=== PATIENT | female | born 2000 | race Caucasian/White ===

== ENCOUNTER 2019-12-20 08:05 | Emergency (ER) | payer SELFPAY ==
[~2019-12-20] VITALS: Ht 160 cm; Wt 109.0 kg
[2019-12-20 08:19] VITALS: BP 160/85
--- NOTE | 2019-12-20 08:25 | PHYS DOC ---
General Adult EDM: Chief Complaint: FOOT INJURY PAIN HPI: HPI: Patient is a 19 year old female who presented to ER today for evaluation of left ankle pain after she stepped into a hole last night while leaving work. Patient says she heard a loud pop in her left ankle, has been having pain since. The pain is worse whenever she walks. Patient denies any pain in her foot or her left knee. Review of Systems: Review of Systems: Constitutional: Denies fever or chills. [] Eyes: Denies change in visual acuity. [] HENT: Denies nasal congestion or sore throat. [] Respiratory: Denies cough or shortness of breath. [] Cardiovascular: Denies chest pain or edema. [] GI: Denies abdominal pain, nausea, vomiting, bloody stools or diarrhea. [] : Denies dysuria. [] Musculoskeletal: Positive for left ankle pain. Integument: Denies rash. [] Neurologic: Denies headache, focal weakness or sensory changes. [] Endocrine: Denies polyuria or polydipsia. [] Lymphatic: Denies swollen glands. [] Psychiatric: Denies depression or anxiety. [] Heart Score: Risk Factors: Risk Factors: DM, Current or recent (<one month) smoker, HTN, HLP, family history of CAD, obesity. Risk Scores: Score 0 - 3: 2.5% MACE over next 6 weeks - Discharge Home Score 4 - 6: 20.3% MACE over next 6 weeks - Admit for Clinical Observation Score 7 - 10: 72.7% MACE over next 6 weeks - Early Invasive Strategies Allergies: Allergies: Allergies Coded Allergies Type Severity Reaction Last Updated Verified acetaminophen Adverse Reaction Unknown Rash 12/20/19 Yes hydrocodone Adverse Reaction Unknown Rash 12/20/19 Yes Physical Exam: PE: Constitutional: Well developed, well nourished, no acute distress, non-toxic appearance. [] HENT: Normocephalic, atraumatic, bilateral external ears normal, oropharynx moist, no oral exudates, nose normal. [] Eyes: PERRLA, EOMI, conjunctiva normal, no discharge. [] Neck: Normal range of motion, no tenderness, supple, no stridor. [] Cardiovascular:Heart rate regular rhythm, no murmur [] Lungs & Thorax: Bilateral breath sounds clear to auscultation [] Abdomen: Bowel sounds normal, soft, no tenderness, no masses, no pulsatile masses. [] Skin: Warm, dry, no erythema, no rash. [] Back: No tenderness, no CVA tenderness. [] Extremities: Left ankle is swollen and tender to palpation at the left lateral malleolus area, no deformity noted, ankle is stable. There is no tenderness to palpation on the left foot, no tenderness to palpation over the proximal tibia or fibular area, no knee tenderness to palpation. Neurologic: Alert and oriented X 3, normal motor function, normal sensory function, no focal deficits noted. [] Psychologic: Affect normal, judgement normal, mood normal. [] EKG: EKG: [] Radiology/Procedures: Radiology/Procedures: [][facility] [address] [place] [address] IMAGING REPORT Signed PATIENT: ANNE FRANKLIN ACCOUNT: [id number] : 2000 LOCATION: ER AGE: 19 SEX: F EXAM STATUS: REG ER ORD. PHYSICIAN: SYDNIE GANT DO REASON: left ankle injured, stepped into a hole, PAIN ON LATERAL SIDE,LROM PROCEDURE: ANKLE LEFT 3V Examination: ANKLE LEFT 3V History: Reason: left ankle injured, stepped into a hole, PAIN ON LATERAL SIDE,LROM Comparison/Correlation: None Findings: Total 3 images left ankle were obtained with portable technique. Ankle joint mortise is unremarkable. Soft tissue swelling about the malleoli noted. No displaced fracture or bone destruction. No degenerative changes seen. Impression: Mild soft tissue swelling. Electronically signed by: Barry Aguila MD (12/20/2019 8:34 AM) [id number] DICTATED and SIGNED BY: BARRY AGUILA MD DATE: 12/20/19 0834 Course & Med Decision Making: Course & Med Decision Making Pertinent Labs and Imaging studies reviewed. (See chart for details) [] Dragon Disclaimer: Dragon Disclaimer: This electronic medical record was generated, in whole or in part, using a voice recognition dictation system. Departure Departure Impression: Primary Impression: Left ankle sprain Disposition: 01 HOME, SELF-CARE Condition: STABLE Referrals: NO PCP (PCP) please follow up with your doctor as needed. Patient Instructions: Ankle Sprain, Acute, with Phase I Rehab-SportsMed Scripts Naproxen Sodium (ANAPROX DS) 550 Mg Tablet 1 TAB PO BID PRN for PAIN for 15 Days, #30 TAB 0 Refills Prov: SYDNIE GANT DO 12/20/19 Justicifation of Admission Dx: Justifications for Admission: Justification of Admission Dx: N/A SYDNIE GANT DO Dec 20, 2019 08:25
--- NOTE | 2019-12-20 08:37 | RAD ---
Examination: ANKLE LEFT 3V History: Reason: left ankle injured, stepped into a hole, PAIN ON LATERAL SIDE,LROM Comparison/Correlation: None Findings: Total 3 images left ankle were obtained with portable technique. Ankle joint mortise is unremarkable. Soft tissue swelling about the malleoli noted. No displaced fracture or bone destruction. No degenerative changes seen. Impression: Mild soft tissue swelling. Electronically signed by: Irving Chaidez MD (12/20/2019 8:34 AM) [id number]
[2019-12-20] MEDS ORDERED: NAPR-682 PO (09:20)
== END 2019-12-20 09:24 | disposition home or self-care (01) ==
LOC: ER 08:05
DX: S93.492A Sprain of other ligament of left ankle, initial encounter (principal); R60.0 Localized edema; Z88.5 Allergy status to narcotic agent; Z88.6 Allergy status to analgesic agent; W22.8XXA Striking against or struck by other objects, initial encounter; Y93.89 Activity, other specified; Y92.89 Other specified places as the place of occurrence of the external cause; Y99.0 Civilian activity done for income or pay
CPT/HCPCS: 73610; 99283; L4350